=== PATIENT | female | born 1965 | race African-American/Black ===

== ENCOUNTER 2021-03-15 13:40 | Emergency (ER) | payer MEDICAID, MEDICARE ==
[~2021-03-15] VITALS: Ht 157.5 cm; Wt 50.0 kg
[~2021-03-15 13:40] MED LIST: CARI350T28; DIAZ10TA; HYDR1TAB4
[2021-03-15] MEDS ORDERED: IBUPROFEN 600MG TABLET PO ONE (14:30)
[2021-03-15 15:27] VITALS: BP 110/68
[2021-03-15] MEDS ORDERED: IBUP-2029 MT (16:02)
== END 2021-03-15 16:44 | disposition home or self-care (01) ==
LOC: ER 13:40
DX: M54.89 Other dorsalgia (principal); R51.9 Headache, unspecified; Z90.89 Acquired absence of other organs; Z88.6 Allergy status to analgesic agent
CPT/HCPCS: 99282

== ENCOUNTER 2022-10-15 16:00 | Emergency (ER) | payer MEDICARE ==
[~2022-10-15] VITALS: Ht 170.2 cm; Wt 65.0 kg
[~2022-10-15 16:00] MED LIST changes: +IBUP-2029 MT
[2022-10-15 19:25] LABS: BASOPHILS % 0.3 % (0.0-2.0); HEMATOCRIT. 31.3 % (36.0-48.0); HEMOGLOBIN. 10.5 g/dL (12.0-16.0); MEAN CORPUSCULAR HEMOGLOBIN 33.7 pg (28.0-32.0); MEAN CORPUSCULAR VOLUME 101.1 fL (81.0-99.0); MEAN PLATELET VOLUME 6.1 fl (7.4-10.4); MONOCYTES % 9.8 % (2.0-8.0); NEUTROPHILS % 40.9 % (40.0-76.0); PLATELET 412 x1000/uL (130-400); RED CELL DISTRIBUTION WIDTH 16.4 % (11.6-14.6)
[2022-10-15 19:34] LABS: CHLORIDE 112 mEq/L (98-107)
[2022-10-15 19:41] LABS: ETHANOL BLOOD < 10 mg/dL
[2022-10-15 21:40] LABS: BG BASE EXCESS -0.8 mmol/L (-2.0-2.0); BG CARBOXYHEMOGLOBIN 1.8 % (0.5-1.5); BG DEOXYHEMOGLOBIN 8.3 % (0.0-5.0); BG FRACTION INSPIRED OXYGEN 21; BG HCO3 ACT 23.8 mmol/L (22.0-26.0); BG METHEMOGLOBIN 0.3 % (0.0-1.5); BG OXYGEN SATURATION 91.5 % (92.0-98.5); BG OXYHEMOGLOBIN 89.6 % (94.0-97.0); BG PCO2 39.2 mmHg (35.0-45.0); BG PH 7.402 (7.350-7.450); BG PO2 64.7 mmHg (75.0-100.0); BG SAMPLE SITE RIGHT RADIAL; BG TOTAL HEMOGLOBIN 10.1 g/dL (12.0-18.0); BG VENT MODE ROOM AIR
[2022-10-15] MEDS ORDERED: SODIUM CHLORIDE 0.9% 1,000 ML IV ONE (21:45)
[2022-10-15] MEDS ORDERED: ACTIVATED CHARCOAL 50 G/240 ML TUBE PO ONE (21:45)
[2022-10-16 04:00] VITALS: BP 102/62
== END 2022-10-16 05:42 | disposition home or self-care (01) ==
LOC: ER 16:00 → CANBEDREQ 10-16 07:30
DX: R44.0 Auditory hallucinations (principal); R51.9 Headache, unspecified
CPT/HCPCS: 36415; 36600; 70450; 80053; 80307; 80320; 80329; 82375; 82805; 85025; 93005; 96360; 99285; J7030; G0480